=== PATIENT | female | born 1965 | race Caucasian/White ===

== ENCOUNTER → 2020-06-30 | Outpatient (CLI) | payer BC ==
[~2020-06-30] MED LIST: FLEXERIL 10 MG10 MG PO; IBUPROFEN600 MG PO; LEVAQUIN750 MG PO; MEDROL4 MG PO; NP THYROID30 MG PO; OMNICEF 300 MG300 MG PO; PAXIL20 MG PO; SPIRIVA RESPIMAT4 GM INH; SYMBICORT 160-1 INHA INH
[2020-06-30 08:45] LABS: HEMOGLOBIN 14.4 gm/dl (12.3-15.3); RED BLOOD COUNT 4.91 M/UL (4.00-5.10); WHITE BLOOD COUNT 6.8 K/UL (4.5-11.0)
[2020-06-30 09:29] LABS: BUN/CREATININE RATIO 21 (0-10)
== END ==
LOC: LAB 07:14
PROVIDERS: Nurse Practitioner
DX: J43.9 Emphysema, unspecified (principal); E03.9 Hypothyroidism, unspecified; M54.5 Low back pain; F32.9 Major depressive disorder, single episode, unspecified; G43.009 Migraine without aura, not intractable, without status migrainosus; E55.9 Vitamin D deficiency, unspecified; L04.9 Acute lymphadenitis, unspecified; Z00.01 Encounter for general adult medical examination with abnormal findings; Z13.1 Encounter for screening for diabetes mellitus; Z13.220 Encounter for screening for lipoid disorders; Z68.22 Body mass index [BMI] 22.0-22.9, adult
CPT/HCPCS: 36415; 70360; 71046; 80053; 80061; 82607; 82746; 84439; 84443; 85027

== ENCOUNTER → 2020-07-07 | Outpatient (CLI) | payer BC | LOC: MAMO 10:30 | DX: Z12.31 Encounter for screening mammogram for malignant neoplasm of breast (principal) | CPT/HCPCS: 77063; 77067 ==

== ENCOUNTER → 2021-11-16 | Outpatient (CLI) | payer BC ==
[2021-11-16 08:16] LABS: HEMOGLOBIN 14.6 gm/dl (12.3-15.3); RED BLOOD COUNT 4.96 M/UL (4.00-5.10); WHITE BLOOD COUNT 5.9 K/UL (4.5-11.0)
[2021-11-16 08:34] LABS: BUN/CREATININE RATIO 10 (0-10)
== END ==
LOC: LAB 06:50
PROVIDERS: Nurse Practitioner Family
DX: E03.9 Hypothyroidism, unspecified (principal); J44.9 Chronic obstructive pulmonary disease, unspecified; E55.9 Vitamin D deficiency, unspecified; F32.A Depression, unspecified; Z13.220 Encounter for screening for lipoid disorders; Z00.00 Encounter for general adult medical examination without abnormal findings; Z72.0 Tobacco use
CPT/HCPCS: 36415; 80053; 80061; 82607; 84439; 84443; 85025